=== PATIENT | female | born 1975 | race African-American/Black ===

== ENCOUNTER 2020-09-03 09:04 | Outpatient (CLI) | payer OTHER | END 2020-09-03 09:05 | disposition home or self-care (01) | LOC: BURRAD 09:04 | PROVIDERS: ATTEND Nurse Practitioner | DX: M54.16 Radiculopathy, lumbar region (principal); M43.16 Spondylolisthesis, lumbar region; M47.22 Other spondylosis with radiculopathy, cervical region | CPT/HCPCS: 72050; 72120 ==